=== PATIENT | male | born 1970 | race Caucasian/White ===

== ENCOUNTER 2019-03-04 09:26 | Emergency (ER) | payer BC ==
[~2019-03-04] VITALS: Ht 167.6 cm; Wt 76.8 kg
[2019-03-04 09:35] VITALS: Ht 167.6 cm; Wt 76.8 kg
[2019-03-04] MEDS ORDERED: SOD CHLORIDE 0.9% 500 ML IV STA (10:39)
[2019-03-04] MEDS ORDERED: LEVE-5 PO (10:48)
[2019-03-04] MEDS ORDERED: SOD CHLORIDE 0.9% 100 ML ONE (11:21)
[2019-03-04] MEDS ORDERED: IOHEXOL 300MG/ML 150 ML BTL ONE (11:21)
[2019-03-04] MEDS ORDERED: MAGN400O19 PO (13:37)
--- NOTE | 2019-03-04 13:45 | ERD ---
ER Documentation Chief Complaint Chief Complaint lt lower AP w/constipation, rectal bleed on/off x3 wks HPI This is a very pleasant 48-year-old male with a known history of seizure disorder who is on Keppra 500 mg twice daily. The patient indicates that for the past several weeks he has been experiencing constipation. He has been taking beet juice to help improve his symptoms and he spoke with his neurologist who indicated this could be result of the Keppra. The patient presents to the emergency department today as he states he is been having left lower quadrant abdominal pain that does radiate to the back. The pain is a cramping-like sensation. The pain is 6 out of 10 in intensity. He also indicates that he has had intermittent rectal bleeding for several years. Contrary to the triage note which stated the rectal bleeding was for 3 weeks, the patient states that he does have a history of external hemorrhoids. The patient denies any weight loss. 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 ROS All systems reviewed and are negative except as per history of present illness. Medications Home Meds Active Scripts Magnesium Hydroxide* (Milk Of Magnesia*) 400 Mg/5 Ml Oral.susp, 30 ML PO Q12H for CONSTIPATION for 30 Days, ML Prov:LINNEA BARTON MD 03/04/19 Reported Medications Levetiracetam* (Keppra*) 500 Mg Tablet, 500 MG PO BID, TAB 03/04/19 Allergies Allergies: Coded Allergies: No Known Allergy (Unverified , 03/04/19) PMhx/Soc History of Surgery: No Anesthesia Reaction: No Hx Neurological Disorder: Yes (SEIZURES ) Hx Respiratory Disorders: No Hx Cardiac Disorders: No Hx Psychiatric Problems: No Hx Miscellaneous Medical Probl: Yes (HEMORRHOIDS ) Hx Alcohol Use: Yes Hx Substance Use: No Hx Tobacco Use: No (QUIT 15 YRS AGO ) Smoking Status: Former smoker Physical Exam Vitals Vital Signs Date Temp Pulse Resp B/P (MAP) Pulse Ox O2 O2 Flow FiO2 Time Delivery Rate 03/04/19 54 16 118/84 99 Room Air 12:30 (95) 03/04/19 59 16 138/87 99 Room Air 10:53 (104) 03/04/19 97.4 62 18 130/79 99 09:35 (96) Physical Exam Constitutional:Well-developed. Well-nourished. HEENT:Normocephalic. Atraumatic.Pupils were equal round reactive to light. Respiratory: Not using accessory muscles of respiration.Lungs were clear to auscultation bilaterally. No rhonchi. No rales. No wheezing. Cardiovascular: Regular rate regular rhythm.No murmurs. No rubs were appreciated.S1, S2 normal. Distal pulses are palpable 2+ bilaterally. GI: Abdomen was soft. Tenderness in the left lower quadrant. No CVA tenderness.. Non Distended. No pulsatile abdominal masses or bruits. No rebound. No guarding. Bowel sounds were present and normal. Muscle skeletal: Full range of motion of both the upper and lower extremities bilaterally.Normal muscle tone.No assymetrical calf tenderness or swelling. Skin: No petechia, no purpura. No lesions on the palms or the soles of the feet. No maculopapular rash. NEURO: Patient was alert, awake, orientated x3.No facial droop. Gait observed and normal with no ataxia.Speech had regular rate and rhythm. No focal ne urological deficits. Result Diagram: 03/04/19 1025 03/04/19 1025 Results 24 hrs Laboratory Tests Test 03/04/19 10:25 White Blood Count 6.1 10^3/ul Red Blood Count 5.04 10^6/ul Hemoglobin 14.0 g/dl Hematocrit 43.5 % Mean Corpuscular Volume 86.3 fl Mean Corpuscular Hemoglobin 27.8 pg Mean Corpuscular Hemoglobin Concent 32.2 g/dl Red Cell Distribution Width 13.0 % Platelet Count 271 10^3/UL Mean Platelet Volume 10.6 fl Immature Granulocytes % 0.300 % Neutrophils % 59.7 % Lymphocytes % 28.6 % Monocytes % 9.4 % Eosinophils % 1.5 % Basophils % 0.5 % Nucleated Red Blood Cells % 0.0 /100WBC Immature Granulocytes # 0.020 10^3/ul Neutrophils # 3.6 10^3/ul Lymphocytes # 1.7 10^3/ul Monocytes # 0.6 10^3/ul Eosinophils # 0.1 10^3/ul Basophils # 0.0 10^3/ul Nucleated Red Blood Cells # 0.0 10^3/ul Prothrombin Time 12.7 Sec Prothrombin Time Ratio 1.0 INR International Normalized Ratio 0.94 Activated Partial Thromboplast Time 32.2 Sec Urine Color YELLOW Urine Clarity CLEAR Urine pH 6.0 Urine Specific [place] 1.013 Urine Ketones NEGATIVE mg/dL Urine Nitrite NEGATIVE mg/dL Urine Bilirubin NEGATIVE mg/dL Urine Urobilinogen NEGATIVE mg/dL Urine Leukocyte Esterase NEGATIVE Nhi/ul Urine Hemoglobin NEGATIVE mg/dL Urine Glucose NEGATIVE mg/dL Urine Total Protein NEGATIVE mg/dl Sodium Level 138 mmol/L Potassium Level 4.3 mmol/L Chloride Level 103 mmol/L Carbon Dioxide Level 29 mmol/L Anion Gap 6 Blood Urea Nitrogen 13 mg/dl Creatinine 0.77 mg/dl Est Glomerular Filtrat Rate mL/min > 60 mL/min Glucose Level 92 mg/dl Calcium Level 9.6 mg/dl Total Bilirubin 0.6 mg/dl Direct Bilirubin 0.00 mg/dl Indirect Bilirubin 0.6 mg/dl Aspartate Amino Transf (AST/SGOT) 35 IU/L Alanine Aminotransferase (ALT/SGPT) 27 IU/L Alkaline Phosphatase 50 IU/L Total Protein 7.6 g/dl Albumin 4.3 g/dl Globulin 3.30 g/dl Albumin/Globulin Ratio 1.30 Amylase Level 81 U/L Lipase 63 U/L Current Medications Medications Dose Sig/Hema Start Time Status Last (Trade) Ordered Route PRN Stop Time Admin Dose Reason Admin Sodium 500 ml @ Q1H STAT 03/04/19 DC 03/04/19 Chloride 500 mls/hr IV 10:39 10:47 03/04/19 11:38 IV Flush 10 ml STK-MED 03/04/19 DC (NS 10 ml) ONCE .ROUTE 11:21 03/04/19 11:22 Sodium 100 ml @ ud STK-MED 03/04/19 DC Chloride ONCE .ROUTE 11:21 03/04/19 11:22 Iohexol 150 ml STK-MED 03/04/19 DC (Omnipaque ONCE .ROUTE 11: 300mg/ ml) 03/04/19 11:22 Procedures/MDM This patient presented to the emergency department with abdominal pain and was seen and evaluated by myself. My differential diagnosis included but was not limited to abdominal aortic aneurysm, appendicitis, pancreatitis, perforated peptic ulcer, perforated viscus, Boerhaave's syndrome or visceral pain such as diverticulitis, DKA, esophagitis, hepatitis or bowel obstruction. The patient was placed on a case monitor, continuous pulse oximetry, and IV access was established by nursing staff. CT scan the abdomen showed that there is no evidence of diverticulosis. The patient did have mild constipation. The patient's hemoglobin was within normal limits. The patient indicated he will be able to arrange with his primary care physician for an outpatient colonoscopy. The patient was sent home with milk of magnesium. The patient was discharged home in fair condition. They were instructed to ret urn to the emergency department at any time if there was any worsening of their condition. The patient stated they would follow up with their PCP in the next 24-48 hours to initiate a suitable medication regimen under the care of their PCP as well as to allow their PCP to monitor any drug reactions. The patient was discharged home with prescriptions after they gave informed consent to the new medication. They were also fully informed by myself on the adverse effects and adverse drug interactions in order to provide adequate safeguards to prevent possible adverse reactions to medications. Departure Diagnosis: Primary Impression: Abdominal pain Abdominal location: left lower quadrant Qualified Codes: R10.32 - Left lower quadrant pain Additional Impression: Constipation Constipation type: unspecified constipation type Qualified Codes: K59.00 - Constipation, unspecified Condition: Fair Patient Instructions: Constipation (Adult), Abdominal Pain, Unkown Cause, (Male) LINNEA BARTON MD Mar 04, 2019 13:45
[2019-03-04 14:12] VITALS: BP 113/80; PULSE 63; RESP 14
== END 2019-03-04 14:10 | disposition home or self-care (01) ==
LOC: E/R 09:26
DX: R10.32 Left lower quadrant pain (principal); K59.00 Constipation, unspecified; Z87.891 Personal history of nicotine dependence
CPT/HCPCS: 74177; 80053; 81003; 82150; 83690; 85025; 85610; 85730; 87086; 99285; J7040; Q9967